=== PATIENT | female | born 1980 | race Two or more races ===

== ENCOUNTER → 2019-09-18 | Day surgery (SDC) | payer OTHER ==
[~2019-09-18] VITALS: Ht 170.2 cm; Wt 71.2 kg
== END | disposition home or self-care (01) ==
LOC: ER 08:19 → EDBD 09:00 → CIR.AMB 09:00
DX: O02.1 Missed abortion (principal)

== ENCOUNTER 2022-05-20 19:00 | Emergency (ER) | payer OTHER ==
[~2022-05-20] VITALS: Ht 157.5 cm; Wt 74.4 kg
[~2022-05-20 19:00] MED LIST: CHILDREN'S ASPI81 MG PO; FUSION PLUS CA1 EACH PO; IRON18 MG; PERCOCET 5-3251 EACH PO; PRENATAL TABLE1 EAC1 PO; SURFAK240 M1 PO
[2022-05-20] MEDS ORDERED: PROTONIX20 MG (19:16)
[2022-05-20] MEDS ORDERED: FOLIC ACID20 MG (19:17)
[2022-05-20] MEDS ORDERED: MEDROLPACK PO (22:56)
[2022-05-20] MEDS ORDERED: ZITHROMAX500 MG PO (22:58)
== END 2022-05-20 23:38 | disposition home or self-care (01) ==
LOC: ER 19:00
DX: B34.9 Viral infection, unspecified (principal); Z20.822 Contact with and (suspected) exposure to COVID-19

== ENCOUNTER 2023-02-04 22:22 | Emergency (ER) | payer OTHER ==
[~2023-02-04] VITALS: Ht 167.6 cm; Wt 74.4 kg
[~2023-02-04 22:22] MED LIST changes: +FOLIC ACID20 MG; +MEDROLPACK PO; +PROTONIX20 MG; +ZITHROMAX500 MG PO
== END 2023-02-05 04:29 ==
LOC: ER 22:22
DX: O20.8 Other hemorrhage in early pregnancy (principal); Z3A.01 Less than 8 weeks gestation of pregnancy

== ENCOUNTER 2023-07-27 13:16 | Emergency (ER) | payer OTHER ==
[~2023-07-27] VITALS: Ht 167.6 cm; Wt 75.7 kg
[2023-07-27] MEDS ORDERED: CHILDREN'S ASPI81 MG PO (13:40)
== END 2023-07-27 18:36 | disposition home or self-care (01) ==
LOC: ER 13:16
PROVIDERS: Nurse Practitioner Family
DX: O20.8 Other hemorrhage in early pregnancy (principal); Z3A.20 20 weeks gestation of pregnancy; R10.2 Pelvic and perineal pain; M54.50 Low back pain, unspecified; O20.9 Hemorrhage in early pregnancy, unspecified